=== PATIENT | male | born 1960 | race Caucasian/White ===

== ENCOUNTER 2020-05-10 06:58 | Outpatient (REF) | payer MEDICARE, SELFPAY ==
--- NOTE | ~2020-05-10 | CT_ITS ---
EXAMINATION: CT SINUS WITHOUT CONTRAST CLINICAL INFORMATION: 59-year-old with deviated septum and sinonasal polyps. COMPARISON: None. TECHNIQUE: Volumetric CT imaging of the paranasal sinuses was done. This CT examination was performed using dose optimization techniques as appropriate, variously including the following: *Automated exposure control *Adjustment of mA and/or kV according to patient size (this includes techniques or standardized protocols for targeted exams where dose is matched to indication/reason for exam; i.e. extremities or head) *Use of iterative reconstruction technique DLP: 132.2 mGy-cm. FINDINGS: Nasal Cavity: There is an moderate nasal septal deviation to the left. There is partial opacification of the olfactory recesses which is nonspecific. Cribriform plate appears grossly intact. No nasal cavity masses. Nasopharyngeal soft tissues appear unremarkable. There is a small jovita bullosa in the right middle turbinate. Maxillary Sinuses: There is evidence of a previous left medial maxillary antrostomy which is patent. The left maxillary sinus is atelectatic compared to the right suggesting partial hypoplasia, with partial opacification of the residual sinus cavity. The right maxillary sinus is hyperpneumatized compared to the left and is clear with a patent right OMC and intact bony doyle. Ethmoid Sinuses: There are minor degrees of mucosal thickening in the ethmoid complex which is otherwise unopacified with intact fovea ethmoidalis. There are bilateral pneumatized, clear supraorbital cells. On image 43 of series 2, there is a 2.4 mm ovoid soft tissue density in one of the middle ethmoid air cells on the right, immediately adjacent to which, there is a 2 mm dehiscence in the adjacent medial orbital wall, which abuts the superior oblique muscle. Otherwise the orbital doyle appear intact. Frontal Sinuses: The frontal sinuses are well pneumatized and predominantly clear, with bilaterally patent drainage. 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 The sphenoid ostia are patent bilaterally. The carotid canals are medialized, but are covered by bone. Additional Findings: The mastoids and middle ear cavities are unopacified. There are [id number] degenerative changes involving the mid tibial condyles bilaterally consistent with bilateral TMJ arthrosis. Limited visualization of the intracranial structures is grossly unremarkable within the limitations of the study. There is a partially imaged 11 mm cystic structure which appears at least partially well corticated located in the posterior aspect of the left mandible which may reflect a partially imaged radicular or dentigerous cyst. CT/CT sinus wo con IMPRESSION: 1. Nasal septal deviation to the left as described above with a small jovita bullosa in the right middle turbinate. 2. Atelectatic, partially hypoplastic left maxillary sinus with a patent left medial maxillary antrostomy, with a partially opacified residual left maxillary sinus cavity. 3. A 2.5 mm soft tissue density in a single right middle ethmoid air cell with an adjacent 2 mm dehiscence in the bordering medial orbital wall adjacent to the superior oblique muscle of indeterminate significance. Follow-up as per clinical indications. 4. Mild mucosal thickening in the sphenoid sinus which appears anomalous as described above with a possible small polyp. 5. Bilateral TMJ arthrosis. 6. Possible partially imaged 11 mm dentigerous or odontogenic cyst in the posterior left mandible.
== END 2020-05-10 06:59 | disposition home or self-care (01) ==
LOC: HO.CT 06:58
PROVIDERS: PCP Internal Medicine; Visit Provider Otolaryngology
DX: J33.0 Polyp of nasal cavity (principal); J34.2 Deviated nasal septum
CPT/HCPCS: 70486

== ENCOUNTER 2024-11-06 08:50 | Outpatient (AMB) | payer MEDICARE, OTHER, SELFPAY ==
--- NOTE | 2024-11-06 08:55 | A.SPINEOV_ITS ---
Vital Signs 11/06/24 08:58 Height 5 ft 10 in Weight 160 lb BMI 23.0 Intake Visit Reasons: LBP Intake Note: Mr. Zamora is here today c/o low back pain. 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 He also has a history of cervical degenerative disc disease and chronic neck pain as well. With regard to the lower back, he reports about 10 years ago or so he was in a [place] that was a few feet off the ground and fell and landed on a hard floor. At the time he landed on his left buttock area, and also his elbow and hit his head. It was quite a significant fall but he did not end up needing to go to the emergency room, was able to finishes vacation in pain. Unfortunately though, he has had the same pain in the left buttock area for the last 10 years. It is not a daily pain that is present all the time, but rather is generally only present if he is walking for more than 20 or 30 minutes. If he puts his hand over the area almost in his supportive way he can make the symptoms get better and he can continue to proceed with his walking but it is quite uncomfortable. He does not have any shooting pain associated with this down the leg. When it initially happened he went through a series of conservative management treatments including trials of gabapentin, physical therapy, acupuncture as well as cortisone injections. It sounds like the cortisone injections were epidural based on some paperwork he brought with him. They were of no help. The physical therapy as well was of no direct improvement in his symptoms. He is just continue to live with this for years and adjust activities. Secondly he has midline chronic low back pain which he has had for years. This also did not respond to any of the physical therapy or injections done at [facility] when he was seen for the other issues. Generally again he just lives with this. He does not feel it bad enough to take any medications. He also had an issue with a flare-up of a right-sided hip/flank pain that has had episodic intense flare-ups, 1 of which put him in the emergency room on September 15. That was treated with Valium quite successfully. That for the most part is gone away. All this is superimposed on chronic neck issues that he has had for many years. He at [address] Laith Samano at [facility] and the pain was so bad he was considering multilevel fusion. 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 He is still continues to live with severe neck pain and also reports that he has feelings of tingling and numbness in his 4th and 5th digits as well as loss of dexterity in his right hand. 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 He is a history of prostate cancer which as he understands it is low-grade in his just being monitored with surveillance routinely. History of high cholesterol. He also has a form of pancreatic insufficiency that is related to his octreotide that he takes for his pituitary function. He does not report any history of coronary artery disease, pulmonary issues, liver or kidney disease, bleeding disorders, blood clots etc.. Social hx: He does not smoke, drink, may occasionally use some marijuana Medications: Lisinopril, metoprolol, atorvastatin, alfuzosin and octreotide Allergies: None Physical exam: Awake alert oriented no acute distress, he has some mild strength loss of his right triceps, hand strength is full and rest of his upper extremity strength is full. Lower extremity strength is also full strength 5/5. Reflexes are diffusely hyper with clonus at his ankles and right sided Brown's sign. Imaging review: He has had multiple imaging studies done at [place], the lumbar MRI done just a month or so ago shows that he has multilevel degenerative disc disease at L4-5 and L3-4 primarily. There is no significant central canal stenosis. There is a slight left L4-5 lateral recess stenosis. There is no evidence of fracture, herniated disc or subluxations. Cervical MRI done about 10 years ago shows severe degenerative disc disease with multilevel foraminal stenosis. 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 With regard to the left buttock pain after the fall from the [place]. I am wondering if this could be SI joint related instability which we know can be associated with trauma. I do not believe from the records he brought with him that he ever had an SI joint injection. He did have an MRI of his hip and that excluded gluteal tendinopathy. I would like to send him to Dr. Amado at [facility] to see if he believes this could be SI joint and if he deems an injection appropriate could proceed with that if the patient wanted to. That would help at least make a diagnosis for him that has been elusive now for 10 years. With regard to his midline chronic low back pain, this could be coming from the degenerative disc disease we see in the lumbar spine. At this point it is not at a level where he needs surgery. He has no specific restrictions related to the degenerative discs and can carry on with activities as tolerated. He also continues to have terrible chronic neck pain. He has been dealing with this for well over 10 years and generally tries to manage it with avoiding activities that make it worse and he does make it a point to avoid stressors. I am a little concerned about his cervical spine given the previous history of severe degenerative disc disease and what I am seeing on his neurological examination with a little bit of triceps weakness and diffuse hyperreflexia. I would like to get an updated cervical MRI to exclude myelopathy. Thank you for allowing us to care for your patient. The total time spent with this visit with this patient was 65 minutes reviewing history, physical exam, cervical and lumbar imaging review, and implementation of treatment plan or further diagnostic testing Urban Gray MD,PhD [facility] Orders: Orders MR cervical spine wo con Today M50.90 - Cervical disc disorder, unspecified, unspecified cervical region Referrals Pain Management Referral G89.29 - Other chronic pain, M53.3 - Sacrococcygeal disorders, not elsewhere classified, M54.9 - Dorsalgia, unspecified Coding Level of Care Code New Pt Level 5 (20317) Diagnoses Cervical disc disorder M50.90 Back pain M54.9 Chronic SI joint pain M53.3; G89.29
[2024-11-06 08:58] VITALS: BMI 23.0
--- OUTSIDE RECORDS SUMMARY | 2024-11-06 09:23 | XMS_ITS | Clinical Summary ---
Author Organization [facility] Address [address] [place] [address] Care Team Providers Care Steel Shot Header Operator Name Role Phone Trae Mane Primary Care Provider [phone] Allergies No known active allergies Medications lisinopriL (PRINIVIL,ZESTR IL) 20 mg tablet Take 20 mg by mouth once a day. Active atorvastatin (LIPITOR) 20 mg tablet Take 20 mg by mouth once a day. Active alfuzosin (UROXATRAL) 10 mg 24 hr tablet Take 10 mg by mouth once a day. Active coenzyme Q10 (Co Q-10) 300 mg capsule Take by mouth. Active metoprolol tartrate (LOPRESSOR) 25 mg tablet Take 50 mg by mouth once a day. Active LORazepam (ATIVAN) 0.5 mg tablet Take by mouth every 6 hours as needed for anxiety. Active cholecalciferol (VITAMIN D3) 2,000 unit capsule Take 1 capsule by mouth once a day. Active magnesium citrate 100 mg tablet Take 250 mg by mouth 2 times a day. Patient paper work states 2 tabs daily Active lycopene 10 mg capsule Take 40 mg by mouth once a day. Active octreotide acetate (Mycapssa) 20 mg capsule,delayed release(DR/EC) Take 40 mg by mouth 2 times a day. Active ascorbic acid (VITAMIN C) 500 mg tablet Take 500 mg by mouth once a day. Active phytonadione (VITAMIN K) 5 mg tablet Take 5 mg by mouth once a day. Vitamin K2 Active PUMPKIN SEED EXTRACT ORAL Take by mouth. Active cyanocobalamin (vitamin B-12) 1,000 mcg tablet Take 1,000 mcg by mouth once a day. Active thiamine HCl (VITAMIN B-1 ORAL) Take by mouth. Active ZINC ACETATE ORAL Take by mouth. Active Active Problems Problem Noted Date Diagnosed Date Acromegaly 08/27/2023 Diarrhea 08/23/2023 Exocrine pancreatic insufficiency 08/23/2023 Family History Medical History Relation Name Comments Hypertension Father Alzheimer's disease Mother Hypertension Mother Relation Name Status Comments Father Alive Mother Alive Social History Tobacco Use Types Packs/Day Years Used Date Smoking Tobacco: Never Smokeless Tobacco: Never Tobacco Cessation:Counseling Given: Not Answered Alcohol Use Standard Drinks/Week Comments Not Currently 0 (1 standard drink = 0.6 oz pur e alcohol) Sex and Gender Information Value Date Recorded Sex Assigned at Male 06/30/2023 10:27 AM EDT Legal Sex Male 1:40 PM EDT Gender Identity Male 06/30/2023 2:43 PM EDT Sexual Orientation Lesbian or Dwyer 06/30/2023 2: 43 PM EDT Last Filed Vital Signs Vital Sign Reading Time Taken Comments Blood Pressure 108/66 09/30/2023 12:14 PM EDT Pulse 92 09/30/2023 12:14 PM EDT Temperature 36.1 C (97 F) 09/30/2023 9:06 AM EDT Respiratory Rate 21 09/30/2023 12:14 PM EDT Oxygen Saturation 93% 09/30/2023 12:14 PM EDT Inhaled Oxygen Concentration - - Weight 78.9 kg (174 lb) 09/30/2023 9:06 AM EDT Height 179.1 cm (5' 10.5 ) 09/30/2023 9:06 AM ED T Body Mass Index 24.61 09/30/2023 9:06 AM EDT Plan of Treatment Health Maintenance Due Date Last Done Comments Cologuard 1960 Colon Cancer Screening 1960 Colonoscopy 1960 FOBT / Fit Test 1960 HIV Screening 1960 Hepatitis C Screening 1960 Sigmoidoscopy 1960 Medicare AWV 1961 COVID-19 Vaccine ( season) 2023 07/30/2022, 12/18/2021, 07/16/2021, Additional history exists Alcohol/Substance Use Screening 03/15/2024 Depression Screening and Follow-Up 03/15/2024 Social Drivers of Health Annual Screening 03/15/2024 DTaP,Tdap,and Td Vaccines (2 - Td or Tdap) 09/19/2024 09/19/2014 Influenza Vaccine (#1) 2024 , 12/18/2021, 12/20/2020, Additional history exists Zoster Vaccines Completed 06/10/2021, 02/13, 09/20/2007 Pneumococcal Vaccine: 50+ Years Completed 06/15/2022, 09/19/2006 RSV Vaccine (60+ years old and patients) Completed 01/05/2023 Hepatitis B Vaccines Aged Out No long er eligible based on patient's age to complete this topic Insurance [facility] MEDICARE Care Teams Steel Shot Header Operator Relationship Specialty Start Date End Date Trae Mane: [id number] [address] [place] [id number] PCP - General Internal Medicine 06/21/23
--- OUTSIDE RECORDS SUMMARY | 2024-11-06 09:23 | XMS_ITS | Encounter Summary ---
Author Organization [facility] Address [address] [place] [address] Phone Care Team Providers Care Greenhouse Instructor Name Role Phone Trae Mane MD Primary Care Provider [phone] Encounter Details Date Type Department Care Team (Late st Contact Info) Description 12/03/2017 Procedure Pass [facility] - MRI [address] [place] [address] Social History Tobacco Use Types Packs/Day Years Used Date Smoking Tobacco: Never Sex and Gender Information Value Date Recorded Sex Assigned at Male 04/04/2020 9:34 AM EST Legal Sex Male 9:01 AM EST Gender Identity Male 04/04/2020 9:34 AM EST Sexual Orientation Lesbian or Dwyer 04/04/2020 9: 34 AM EST documented as of this encounter Plan of Treatment Not on file documented as of this encounter Visit Diagnoses Not on filedocumented in this encounter Care Teams Greenhouse Instructor Relationship Specialty Start Date End Date Trae Mane MD [address] [place] [address] [address] [place] [address] PCP - General Internal Medicine 12/03/17 documented as of this encounter Additional Source Comments The information contained in this document represents components of the legal health record. It is not the complete legal health record.[facility]
== END 2024-11-06 11:15 | disposition home or self-care (01) ==
LOC: HO.HNS 08:51
PROVIDERS: PCP Internal Medicine; Visit Provider Physician Assistant
DX: M50.90 Cervical disc disorder, unspecified, unspecified cervical region (principal); M54.9 Dorsalgia, unspecified; M53.3 Sacrococcygeal disorders, not elsewhere classified; G89.29 Other chronic pain
CPT/HCPCS: 99205

== ENCOUNTER → 2024-11-06 08:50 | Outpatient (BNVA) | payer MEDICARE, OTHER, SELFPAY | PROVIDERS: PCP Internal Medicine; Visit Provider Physician Assistant | DX: M54.9 Dorsalgia, unspecified (principal); M50.90 Cervical disc disorder, unspecified, unspecified cervical region; M53.3 Sacrococcygeal disorders, not elsewhere classified; G89.29 Other chronic pain | CPT/HCPCS: 99202 ==